=== PATIENT | male | born 1985 | race Caucasian/White ===

== ENCOUNTER 2023-04-19 00:03 | Emergency (ER) | payer OTHER ==
[~2023-04-19] VITALS: Ht 182.9 cm; Wt 78.0 kg
[2023-04-19 00:20] VITALS: BP_SYST 114
--- NOTE | 2023-04-19 00:49 | NUR ---
Patient to [facility] for evaluation. Side rails up. Report given to WINNIE WALDEN.
--- NOTE | 2023-04-19 00:57 | NUR ---
ER at bedside examining patient.
--- NOTE | 2023-04-19 00:57 | NUR ---
PT BIB FROM HOME, ASSISTED TO CHAIR 1 VIA WHEELCHAIR. PT A&Ox4, ABLE TO MAKE NEEDS KNOWN. PT C/O RIGHT HIP PAIN BEGINNING AROUND 2029 ON 04/18/2023. PT RATES PAIN 7-07/10. PT STATES PAIN SHOOTS DOWN LEFT LEG. PT DENIES INJURY. PT DENIES TAKING MEDICATION FOR THE PAIN. PT DENIES N/V/D AND FEVER/CHILLS. PT DENIES SOB AND CHEST PAIN. SAFETY MEASURES IN PLACE.
[2023-04-19] MEDS ORDERED: CYCLOBENZAPRINE HCL 10 MG TABLET (FLEXERIL) PO ONE (01:15)
[2023-04-19] MEDS ORDERED: KETOROLAC TROMETHAMINE 30 MG VIAL IM ONE (01:15)
[2023-04-19] MEDS ORDERED: ACETAMINOPHEN 500 MG TABLET PO ONE (01:15)
[2023-04-19] MEDS ORDERED: ACETAMINOPHEN 500 MG TABLET ONE (01:31)
[2023-04-19] MEDS ORDERED: IBUP-1969 PO (02:32)
[2023-04-19 02:38] VITALS: BP_SYST 114
--- NOTE | 2023-04-19 02:38 | NUR ---
Patient given written and verbal discharge instructions and verbalizes understanding. ER DR MCCLOUD discussed with patient the results and treatment provided. Patient in stable condition. ID arm band removed. Rx of MOTRIN given. Patient educated on pain management and to follow up with PMD. Pain Scale 2/10. Opportunity for questions provided and answered. Medication side effect fact sheet provided.
== END 2023-04-19 02:38 | disposition home or self-care (01) ==
LOC: SED 00:03
DX: M79.652 Pain in left thigh (principal); Z79.899 Other long term (current) drug therapy
CPT/HCPCS: 99285; 73700; 76376; 96372; J1885